=== PATIENT | male | born 1965 | race Caucasian/White ===

== ENCOUNTER 2019-04-28 16:00 | Outpatient (RCR) | payer BC | END 2019-04-28 16:30 | disposition home or self-care (01) | LOC: PT 16:00 | DX: M25.511 Pain in right shoulder (principal) ==

== ENCOUNTER → 2020-10-14 | Outpatient (CLI) | payer BC ==
[~2020-10-14] MED LIST: HUMALOG KWIKPEN SQ; LANTUS SOLOS100 U/ML SQ
[2020-10-14 09:19] LABS: HEMATOCRIT 49.9 % (42.0-52.0); HEMOGLOBIN 16.6 g/dL (13.5-18.0); MEAN CELL VOLUME 93 fl (78-100); MEAN CORPUSCULAR HEMOGLOBIN 31 pg (27-31); MEAN CORPUSCULAR HGB CONC 33 g/dL (33-37); MEAN PLATELET VOLUME 10.5 fl (7.4-10.4); PLATELET COUNT 209 K/mm3 (130-400); RED BLOOD COUNT 5.35 M/mm3 (4.20-5.60); RED CELL DISTRIBUTION WIDTH 12.2 % (11.5-14.5); WHITE BLOOD COUNT 5.2 K/mm3 (4.8-10.8)
[2020-10-14 09:26] LABS: POTASSIUM 4.9 mmol/L (3.5-5.1)
[2020-10-14 09:27] LABS: CALCIUM 9.2 mg/dL (8.3-10.5)
[2020-10-14 09:29] LABS: TOTAL PROTEIN 6.5 g/dL (6.4-8.3)
[2020-10-14 09:31] LABS: TOTAL BILIRUBIN 0.6 mg/dL (0.2-1.2)
[2020-10-14 09:34] LABS: NEUTROPHILS 51 % (42-75)
[2020-10-14 09:35] LABS: LYMPHOCYTE 30 % (20-51); MONOCYTE 15 % (3-10)
[2020-10-14 09:55] LABS: URINE APPEARANCE CLEAR; URINE COLOR YELLOW
[2020-10-14 09:56] LABS: URINE BILIRUBIN NEGATIVE (NEGATIVE); URINE BLOOD NEGATIVE (NEGATIVE); URINE LEUKOCYTE ESTERASE NEGATIVE (NEGATIVE); URINE NITRATE NEGATIVE (NEGATIVE); URINE UROBILINOGEN NORMAL (NORMAL)
[2020-10-14 10:17] LABS: ERYTHROCYTE SEDIMENTATION RATE 2 mm/hr (0-20)
[2020-10-18 10:31] LABS: URINE PROTEIN(semi-quant) TRACE mg/dL (NEGATIVE)
[2020-10-18 10:32] LABS: URINE KETONE 3+ (NEGATIVE); URINE WBC 0-1 /hpf (0-3)
[2020-10-18 10:33] LABS: URINE MUCUS NOT PRESENT (NOT PRESENT)
== END ==
LOC: LAB 08:55
PROVIDERS: Internal Medicine
DX: Z00.00 Encounter for general adult medical examination without abnormal findings (principal); Z12.5 Encounter for screening for malignant neoplasm of prostate; E11.9 Type 2 diabetes mellitus without complications

== ENCOUNTER → 2020-12-15 | Outpatient (CLI) | payer BC | LOC: LAB 10:27 | DX: E10.9 Type 1 diabetes mellitus without complications (principal); K76.9 Liver disease, unspecified | CPT/HCPCS: Q9967 ==

== ENCOUNTER 2021-01-04 09:07 | Emergency (ER) | payer OTHER ==
[2021-01-04] MEDS ORDERED: HUMALOG KWIKPEN SQ (09:36)
[2021-01-04] MEDS ORDERED: LANTUS SOLOS100 U/ML SQ (09:36)
[2021-01-04 09:43] LABS: BASO # 0.04 (0.02-0.10); EOS # 0.03 (0.04-0.40); EOS % 0.3 % (0.0-4.0); HEMOGLOBIN 14.8 g/dL (13.5-18.0); LYMPH# 0.71 (1.50-4.00); MEAN CELL VOLUME 90 fl (78-100); MEAN CORPUSCULAR HEMOGLOBIN 30 pg (27-31); MEAN CORPUSCULAR HGB CONC 34 g/dL (33-37); MONO # 0.45 (0.20-0.80); NEU # 8.23 (1.40-6.50); PLATELET COUNT 201 K/mm3 (130-400); RED BLOOD COUNT 4.89 M/mm3 (4.20-5.60); RED CELL DISTRIBUTION WIDTH 11.4 % (11.5-14.5); WHITE BLOOD COUNT 9.5 K/mm3 (4.8-10.8)
[2021-01-04 09:59] LABS: ALBUMIN 3.5 g/dL (3.5-5.0)
[2021-01-04 10:01] LABS: TOTAL PROTEIN 5.6 g/dL (6.4-8.3)
[2021-01-04 10:03] LABS: TOTAL BILIRUBIN 0.6 mg/dL (0.2-1.2)
[2021-01-04 11:03] VITALS: BP 117/75
== END 2021-01-04 11:10 | disposition home or self-care (01) ==
LOC: ED 09:07
PROVIDERS: Family Medicine
DX: T58.91XA Toxic effect of carbon monoxide from unspecified source, accidental (unintentional), initial encounter (principal); E10.65 Type 1 diabetes mellitus with hyperglycemia; Z79.4 Long term (current) use of insulin
CPT/HCPCS: J7030

== ENCOUNTER → 2021-03-23 | Outpatient (CLI) | payer BC ==
[2021-03-23 08:55] LABS: BASO # 0.03 (0.02-0.10); EOS % 1.6 % (0.0-4.0); HEMATOCRIT 49.6 % (42.0-52.0); HEMOGLOBIN 16.5 g/dL (13.5-18.0); LYMPH# 2.21 (1.50-4.00); MEAN CELL VOLUME 89 fl (78-100); MEAN CORPUSCULAR HEMOGLOBIN 30 pg (27-31); MEAN CORPUSCULAR HGB CONC 33 g/dL (33-37); MEAN PLATELET VOLUME 10.1 fl (7.4-10.4); MONO # 0.62 (0.20-0.80); NEU # 3.37 (1.40-6.50); PLATELET COUNT 265 K/mm3 (130-400); RED CELL DISTRIBUTION WIDTH 12.8 % (11.5-14.5); WHITE BLOOD COUNT 6.4 K/mm3 (4.8-10.8)
[2021-03-23 09:25] LABS: POTASSIUM 5.2 mmol/L (3.5-5.1)
[2021-03-23 09:26] LABS: ALBUMIN 4.3 g/dL (3.5-5.0)
[2021-03-23 09:27] LABS: CALCIUM 10.5 mg/dL (8.3-10.5)
[2021-03-23 09:28] LABS: TOTAL PROTEIN 7.2 g/dL (6.4-8.3)
[2021-03-23 09:30] LABS: TOTAL BILIRUBIN 1.5 mg/dL (0.2-1.2)
== END ==
LOC: LAB 08:42
PROVIDERS: Internal Medicine
DX: E78.5 Hyperlipidemia, unspecified (principal); E10.9 Type 1 diabetes mellitus without complications; K90.9 Intestinal malabsorption, unspecified

== ENCOUNTER → 2021-05-17 | Outpatient (CLI) | payer BC | LOC: VAS 16:25 | DX: M79.605 Pain in left leg (principal); R60.0 Localized edema ==

== ENCOUNTER → 2021-06-19 | Outpatient (CLI) | payer BC ==
[2021-06-19 10:41] LABS: ALBUMIN 4.4 g/dL (3.5-5.0); POTASSIUM 4.4 mmol/L (3.5-5.1)
[2021-06-19 10:42] LABS: CALCIUM 9.7 mg/dL (8.3-10.5)
[2021-06-19 10:45] LABS: TOTAL BILIRUBIN 0.8 mg/dL (0.2-1.2)
== END ==
LOC: LAB 10:07
PROVIDERS: Internal Medicine
DX: E10.9 Type 1 diabetes mellitus without complications (principal); K90.9 Intestinal malabsorption, unspecified

== ENCOUNTER → 2021-09-18 | Outpatient (CLI) | payer OTHER ==
[2021-09-18 10:52] LABS: ALBUMIN 4.2 g/dL (3.5-5.0); POTASSIUM 4.3 mmol/L (3.5-5.1)
[2021-09-18 10:54] LABS: CALCIUM 9.5 mg/dL (8.3-10.5)
[2021-09-18 10:55] LABS: TOTAL PROTEIN 6.8 g/dL (6.4-8.3)
== END ==
LOC: LAB 10:28
PROVIDERS: Internal Medicine
DX: I10 Essential (primary) hypertension (principal); E78.5 Hyperlipidemia, unspecified; E10.9 Type 1 diabetes mellitus without complications; K90.9 Intestinal malabsorption, unspecified; G63 Polyneuropathy in diseases classified elsewhere

== ENCOUNTER → 2021-12-14 | Outpatient (CLI) | payer OTHER ==
[2021-12-14 10:15] LABS: BASO # 0.06 K/mm3 (0.02-0.10); EOS # 0.15 K/mm3 (0.04-0.40); EOS % 2.3 % (0.0-4.0); HEMOGLOBIN 15.4 g/dL (13.5-18.0); LYMPH# 1.69 K/mm3 (1.50-4.00); MEAN CELL VOLUME 89 fl (78-100); MEAN CORPUSCULAR HEMOGLOBIN 29 pg (27-31); MEAN CORPUSCULAR HGB CONC 33 g/dL (33-37); MEAN PLATELET VOLUME 10.7 fl (7.4-10.4); MONO # 0.59 K/mm3 (0.20-0.80); NEU # 3.94 K/mm3 (1.40-6.50); PLATELET COUNT 218 K/mm3 (130-400); RED BLOOD COUNT 5.26 M/mm3 (4.20-5.60); RED CELL DISTRIBUTION WIDTH 12.5 % (11.5-14.5); WHITE BLOOD COUNT 6.4 K/mm3 (4.8-10.8)
[2021-12-14 10:25] LABS: ALBUMIN 4.4 g/dL (3.5-5.0); POTASSIUM 4.9 mmol/L (3.5-5.1)
[2021-12-14 10:27] LABS: CALCIUM 9.6 mg/dL (8.3-10.5)
[2021-12-14 10:28] LABS: TOTAL PROTEIN 6.8 g/dL (6.4-8.3)
[2021-12-14 10:34] LABS: MAGNESIUM 1.65 mg/dL (1.60-2.60)
[2021-12-14 11:21] LABS: URINE APPEARANCE CLEAR; URINE COLOR YELLOW
[2021-12-14 11:22] LABS: URINE BILIRUBIN NEGATIVE (NEGATIVE); URINE BLOOD NEGATIVE (NEGATIVE); URINE KETONE 3+ (NEGATIVE); URINE NITRATE NEGATIVE (NEGATIVE); URINE PROTEIN(semi-quant) NEGATIVE (NEGATIVE); URINE UROBILINOGEN NORMAL (NORMAL)
[2021-12-14 11:23] LABS: URINE LEUKOCYTE ESTERASE NEGATIVE (NEGATIVE); URINE WBC 0-1 /hpf (0-3)
== END ==
LOC: LAB 09:52
PROVIDERS: Internal Medicine
DX: Z12.5 Encounter for screening for malignant neoplasm of prostate (principal); I10 Essential (primary) hypertension; E78.5 Hyperlipidemia, unspecified; E10.9 Type 1 diabetes mellitus without complications; K90.9 Intestinal malabsorption, unspecified; G63 Polyneuropathy in diseases classified elsewhere

== ENCOUNTER → 2022-04-08 | Outpatient (CLI) | payer OTHER ==
[2022-04-08 12:28] LABS: ALBUMIN 4.4 g/dL (3.5-5.0); POTASSIUM 4.8 mmol/L (3.5-5.1)
[2022-04-08 12:30] LABS: CALCIUM 9.5 mg/dL (8.3-10.5)
[2022-04-08 12:31] LABS: TOTAL PROTEIN 6.9 g/dL (6.4-8.3)
[2022-04-08 12:33] LABS: TOTAL BILIRUBIN 0.7 mg/dL (0.2-1.2)
== END ==
LOC: LAB 12:08
PROVIDERS: Internal Medicine
DX: E78.5 Hyperlipidemia, unspecified (principal); I10 Essential (primary) hypertension; K90.9 Intestinal malabsorption, unspecified; E10.9 Type 1 diabetes mellitus without complications; G63 Polyneuropathy in diseases classified elsewhere